=== PATIENT | male | born 1960 | race Caucasian/White ===

== ENCOUNTER 2023-01-10 17:54 | Inpatient (IN) | payer OTHER ==
[2023-01-10] MEDS ORDERED: Ondansetron PF 4 MG/2 ML Vial IVP PRN (18:25)
[2023-01-10] MEDS ORDERED: Acetaminophen 325 MG TAB PO PRN (18:25)
[2023-01-10] MEDS ORDERED: HYDROcodone/Acetaminophen 5/325 mg Tablet PO PRN (18:25)
[2023-01-10] MEDS ORDERED: Guaifenesin DM 100-10/5 ML UDCUP PO PRN (18:28)
[2023-01-10 18:40] VITALS: BMI 39.2
[2023-01-10] MEDS ORDERED: Piperacillin/Tazobactam 4.5 GM in Sodium Chloride 0.9% 100 ML IVPB SCH (19:30)
[2023-01-10] MEDS ORDERED: Non-Formulary Item 1 EACH (Baclofen [Baclofen] 20 MG Tablet) PO SCH (21:00)
[2023-01-10] MEDS: Gabapentin 300 MG CAP PO SCH (21:39)
[2023-01-10] MEDS: Transdermal Patch Removal TOP SCH (21:41)
[2023-01-10] MEDS: Metoprolol Tartrate 25 MG TAB PO SCH (21:41)
[2023-01-10 23:35] LABS: Legionella Urinary Ag Negative (Negative); Strep pneumo Urine Ag NEGATIVE (NEGATIVE)
[2023-01-11] MEDS: Piperacillin/Tazobactam 4.5 GM in Sodium Chloride 0.9% 100 ML IVPB SCH ×3 (03:35→17:31)
[2023-01-11 04:58] LABS: #Eosinphils 0.3 thou/uL (0.0-0.7); #Monocytes 0.3 thou/uL (0.11-0.59); #Neutrophils 2.2 thou/uL (1.40-6.50); %Basophils 0.6 % (0.0-1.0); %Eosinophils 9.1 % (0.0-10.0); %Lymphocytes 10.7 % (21.0-51.0); %Monocytes 9.1 % (0.0-10.0); %Neutrophils 69.9 % (42.0-75.0); Hematocrit 29.1 % (42.0-52.0); Hemoglobin 8.6 g/dL (14.0-18.0); Mean Corpuscular HGB CONC 29.6 g/dL (32.0-36.0); Mean Corpuscular Hemoglobin 28.9 pg (27.0-31.0); Mean Corpuscular Volume 97.7 fl (78.0-98.0); Mean Platelet Volume 13.3 fL (7.4-10.4); RBC Distribution Width 18.3 % (11.5-14.5); Red Blood Cell (RBC) Count 2.98 mill/uL (4.70-6.10); White Blood Cell (WBC) Count 3.2 10x3/uL (4.8-10.8)
[2023-01-11 05:18] LABS: Platelet Count 85 10x3/uL (130-400)
[2023-01-11 05:24] LABS: Anion Gap 10 mmol/L (10-20); BUN (Urea Nitrogen) 18 mg/dL (8.4-25.7); Calc. Creatinine Clearance 208 mL/min (70-130); Calcium 8.9 mg/dL (7.8-10.44); Carbon Dioxide 28 mmol/L (23-31); Chloride 108 mmol/L (98-107); Estimated GFR 102; Glucose 115 mg/dL (80-115); Potassium 4.6 mmol/L (3.5-5.1); Sodium 141 mmol/L (136-145)
[2023-01-11] MEDS: Levothyroxine Sodium 50 MCG TAB PO SCH (05:34)
[2023-01-11] MEDS: Gabapentin 300 MG CAP PO SCH ×2 (09:51→20:54)
[2023-01-11] MEDS: Metoprolol Tartrate 25 MG TAB PO SCH ×2 (09:51→20:54)
[2023-01-11] MEDS: Lidocaine 4% Patch TD SCH (09:51)
[2023-01-11] MEDS: Pantoprazole 40 MG VIAL IVP SCH (09:52)
[2023-01-11] MEDS: Mirabegron ER 25 MG ER.TAB PO SCH (09:52)
[2023-01-11] MEDS ORDERED: Baclofen 10 MG TAB PO SCH (10:00)
[2023-01-11] MEDS: Baclofen 10 MG TAB PO SCH ×2 (15:07→20:58)
[2023-01-11] MEDS: Polyethylene Glycol 3350 17 GM Packet PO SCH (20:54)
[2023-01-11] MEDS: Transdermal Patch Removal TOP SCH (21:01)
[2023-01-12] MEDS: Piperacillin/Tazobactam 4.5 GM in Sodium Chloride 0.9% 100 ML IVPB SCH ×3 (02:50→17:43)
[2023-01-12] MEDS: Levothyroxine Sodium 50 MCG TAB PO SCH (05:30)
[2023-01-12] MEDS: Mirabegron ER 25 MG ER.TAB PO SCH (08:57)
[2023-01-12] MEDS: Gabapentin 300 MG CAP PO SCH ×2 (08:57→20:48)
[2023-01-12] MEDS: Metoprolol Tartrate 25 MG TAB PO SCH ×2 (08:58→20:49)
[2023-01-12] MEDS: Lidocaine 4% Patch TD SCH (08:58)
[2023-01-12] MEDS: Pantoprazole 40 MG VIAL IVP SCH (08:58)
[2023-01-12] MEDS: Baclofen 10 MG TAB PO SCH ×3 (09:01→20:54)
[2023-01-12] MEDS ORDERED: Furosemide 20 MG/2 ML VIAL SLOW IVP SCH (11:00)
[2023-01-12] MEDS ORDERED: Nystatin Powder 15 GM BOT TOP PRN (11:40)
[2023-01-12] MEDS ORDERED: Midodrine HCl 5 MG TAB PO SCH (14:00)
[2023-01-12] MEDS: Polyethylene Glycol 3350 17 GM Packet PO SCH (20:48)
[2023-01-12] MEDS: Apixaban 5 MG TAB PO SCH (20:48)
[2023-01-12] MEDS: Transdermal Patch Removal TOP SCH (21:00)
[2023-01-13] MEDS: Piperacillin/Tazobactam 4.5 GM in Sodium Chloride 0.9% 100 ML IVPB SCH ×3 (02:55→17:45)
[2023-01-13 04:40] LABS: Hemoglobin 9.4 g/dL (14.0-18.0); Mean Corpuscular HGB CONC 29.4 g/dL (32.0-36.0); Mean Corpuscular Hemoglobin 28.7 pg (27.0-31.0); Mean Corpuscular Volume 97.9 fl (78.0-98.0); Mean Platelet Volume 11.9 fL (7.4-10.4); RBC Distribution Width 18.2 % (11.5-14.5); Red Blood Cell (RBC) Count 3.27 mill/uL (4.70-6.10); White Blood Cell (WBC) Count 3.5 10x3/uL (4.8-10.8)
[2023-01-13 04:50] LABS: Platelet Count 89 10x3/uL (130-400)
[2023-01-13 05:03] LABS: Anion Gap 12 mmol/L (10-20); BUN (Urea Nitrogen) 23 mg/dL (8.4-25.7); Calc. Creatinine Clearance 184 mL/min (70-130); Calcium 9.3 mg/dL (7.8-10.44); Carbon Dioxide 27 mmol/L (23-31); Chloride 108 mmol/L (98-107); Estimated GFR 98; Glucose 63 mg/dL (80-115); Magnesium 2.1 mg/dL (1.6-2.6); Potassium 5.1 mmol/L (3.5-5.1); Sodium 142 mmol/L (136-145)
[2023-01-13] MEDS: Levothyroxine Sodium 50 MCG TAB PO SCH (06:39)
[2023-01-13] MEDS ORDERED: Furosemide 20 MG/2 ML VIAL SLOW IVP SCH (09:00)
[2023-01-13] MEDS ORDERED: Dextrose 25% Abboject 10 ML SYRINGE SLOW IVP SCH (09:15)
[2023-01-13] MEDS: Mirabegron ER 25 MG ER.TAB PO SCH (09:58)
[2023-01-13] MEDS: Metoprolol Tartrate 25 MG TAB PO SCH ×2 (09:58→20:39)
[2023-01-13] MEDS: Gabapentin 300 MG CAP PO SCH ×2 (09:58→20:37)
[2023-01-13] MEDS: Pantoprazole 40 MG VIAL IVP SCH (09:59)
[2023-01-13] MEDS: Lidocaine 4% Patch TD SCH (09:59)
[2023-01-13] MEDS: Nystatin Powder 15 GM BOT TOP SCH (09:59)
[2023-01-13] MEDS: Furosemide 20 MG/2 ML VIAL SLOW IVP SCH (10:00)
[2023-01-13] MEDS: Apixaban 5 MG TAB PO SCH ×2 (10:00→20:36)
[2023-01-13] MEDS: Baclofen 10 MG TAB PO SCH ×3 (10:06→20:36)
[2023-01-13] MEDS ORDERED: Dextrose 50% Abboject 50 ML SYRINGE SLOW IVP SCH (10:15)
[2023-01-13] MEDS: Ipratropium/Albuterol 3 ML NEB NEB PRN (14:07)
[2023-01-13] MEDS ORDERED: Midodrine HCl 5 MG TAB PO SCH (20:15)
[2023-01-13] MEDS: Polyethylene Glycol 3350 17 GM Packet PO SCH (20:37)
[2023-01-13] MEDS: Transdermal Patch Removal TOP SCH (20:39)
[2023-01-14] MEDS: Piperacillin/Tazobactam 4.5 GM in Sodium Chloride 0.9% 100 ML IVPB SCH ×3 (02:15→18:42)
[2023-01-14 05:06] LABS: #Eosinphils 0.3 thou/uL (0.0-0.7); #Monocytes 0.3 thou/uL (0.11-0.59); %Basophils 0.3 % (0.0-1.0); %Eosinophils 8.9 % (0.0-10.0); %Lymphocytes 16.2 % (21.0-51.0); %Monocytes 9.6 % (0.0-10.0); Hematocrit 32.7 % (42.0-52.0); Hemoglobin 9.6 g/dL (14.0-18.0); Mean Corpuscular HGB CONC 29.4 g/dL (32.0-36.0); Mean Corpuscular Hemoglobin 28.8 pg (27.0-31.0); Mean Corpuscular Volume 98.2 fl (78.0-98.0); Platelet Count 91 10x3/uL (130-400); RBC Distribution Width 18.2 % (11.5-14.5); Red Blood Cell (RBC) Count 3.33 mill/uL (4.70-6.10); White Blood Cell (WBC) Count 3.1 10x3/uL (4.8-10.8)
[2023-01-14 06:01] LABS: Anion Gap 15 mmol/L (10-20); BUN (Urea Nitrogen) 23 mg/dL (8.4-25.7); Calc. Creatinine Clearance 173 mL/min (70-130); Calcium 9.7 mg/dL (7.8-10.44); Carbon Dioxide 24 mmol/L (23-31); Chloride 108 mmol/L (98-107); Estimated GFR 93; Glucose 58 mg/dL (80-115); Potassium 5.2 mmol/L (3.5-5.1); Sodium 142 mmol/L (136-145)
[2023-01-14] MEDS: Levothyroxine Sodium 50 MCG TAB PO SCH (06:18)
[2023-01-14] MEDS: Lidocaine 4% Patch TD SCH (08:44)
[2023-01-14] MEDS: Furosemide 20 MG/2 ML VIAL SLOW IVP SCH (08:45)
[2023-01-14] MEDS: Pantoprazole 40 MG VIAL IVP SCH (08:45)
[2023-01-14] MEDS: Apixaban 5 MG TAB PO SCH ×2 (08:45→21:18)
[2023-01-14] MEDS: Mirabegron ER 25 MG ER.TAB PO SCH (08:45)
[2023-01-14] MEDS: Gabapentin 300 MG CAP PO SCH ×2 (08:45→21:18)
[2023-01-14] MEDS: Nystatin Powder 15 GM BOT TOP SCH (08:46)
[2023-01-14] MEDS: Metoprolol Tartrate 25 MG TAB PO SCH (08:46)
[2023-01-14] MEDS: Baclofen 10 MG TAB PO SCH ×3 (08:48→21:16)
[2023-01-14] MEDS: Ipratropium/Albuterol 3 ML NEB NEB PRN ×2 (14:57→21:17)
[2023-01-14] MEDS ORDERED: hydrOXYzine 25 MG TAB PO SCH (17:45)
[2023-01-14] MEDS ORDERED: Midodrine HCl 5 MG TAB PO SCH (21:00)
[2023-01-14] MEDS ORDERED: QUEtiapine 25 MG TAB PO SCH (21:00)
[2023-01-14] MEDS: Polyethylene Glycol 3350 17 GM Packet PO SCH (21:16)
[2023-01-14] MEDS: Midodrine HCl 5 MG TAB PO SCH (21:17)
[2023-01-14] MEDS: Senokot S 8.6-50 MG TAB PO SCH (21:18)
[2023-01-14] MEDS: Transdermal Patch Removal TOP SCH (21:19)
[2023-01-15] MEDS ORDERED: Sodium Chloride 0.9% 500 ML IV SCH ×2 (00:15→22:00)
[2023-01-15 04:57] LABS: #Eosinphils 0.2 thou/uL (0.0-0.7); #Monocytes 0.3 thou/uL (0.11-0.59); #Neutrophils 2.2 thou/uL (1.40-6.50); %Basophils 0.3 % (0.0-1.0); %Eosinophils 5.9 % (0.0-10.0); %Lymphocytes 12.8 % (21.0-51.0); %Monocytes 9.2 % (0.0-10.0); %Neutrophils 70.8 % (42.0-75.0); Hematocrit 31.4 % (42.0-52.0); Hemoglobin 9.3 g/dL (14.0-18.0); Mean Corpuscular HGB CONC 29.6 g/dL (32.0-36.0); Mean Corpuscular Hemoglobin 28.9 pg (27.0-31.0); Mean Corpuscular Volume 97.5 fl (78.0-98.0); Mean Platelet Volume 12.5 fL (7.4-10.4); Platelet Count 90 10x3/uL (130-400); RBC Distribution Width 18.1 % (11.5-14.5); Red Blood Cell (RBC) Count 3.22 mill/uL (4.70-6.10)
[2023-01-15 05:17] LABS: Anion Gap 13 mmol/L (10-20); BUN (Urea Nitrogen) 23 mg/dL (8.4-25.7); Calc. Creatinine Clearance 142 mL/min (70-130); Calcium 9.2 mg/dL (7.8-10.44); Carbon Dioxide 29 mmol/L (23-31); Chloride 107 mmol/L (98-107); Estimated GFR 74; Glucose 97 mg/dL (80-115); Potassium 4.9 mmol/L (3.5-5.1); Sodium 144 mmol/L (136-145)
[2023-01-15] MEDS: Levothyroxine Sodium 50 MCG TAB PO SCH (06:53)
[2023-01-15] MEDS ORDERED: Furosemide 20 MG TAB PO SCH (09:00)
[2023-01-15] MEDS: Senokot S 8.6-50 MG TAB PO SCH ×2 (09:30→20:36)
[2023-01-15] MEDS ORDERED: Lactated Ringer's 500 ML IV SCH (12:15)
[2023-01-15] MEDS: Pantoprazole 40 MG VIAL IVP SCH (14:07)
[2023-01-15] MEDS: Baclofen 10 MG TAB PO SCH ×3 (14:33→17:58)
[2023-01-15] MEDS: Gabapentin 300 MG CAP PO SCH ×2 (14:41→20:34)
[2023-01-15] MEDS: Midodrine HCl 5 MG TAB PO SCH ×2 (14:43→17:48)
[2023-01-15] MEDS: Mirabegron ER 25 MG ER.TAB PO SCH (14:47)
[2023-01-15] MEDS: Apixaban 5 MG TAB PO SCH ×2 (14:48→20:34)
[2023-01-15] MEDS: Lidocaine 4% Patch TD SCH (16:11)
[2023-01-15] MEDS: Nystatin Powder 15 GM BOT TOP SCH (16:11)
[2023-01-15] MEDS: Polyethylene Glycol 3350 17 GM Packet PO SCH (20:34)
[2023-01-15] MEDS: Transdermal Patch Removal TOP SCH (20:36)
[2023-01-15] MEDS ORDERED: QUEtiapine 25 MG TAB PO SCH (21:00)
[2023-01-16 05:00] LABS: #Eosinphils 0.2 thou/uL (0.0-0.7); #Monocytes 0.3 thou/uL (0.11-0.59); #Neutrophils 2.4 thou/uL (1.40-6.50); %Basophils 0.3 % (0.0-1.0); %Eosinophils 6.1 % (0.0-10.0); %Lymphocytes 11.9 % (21.0-51.0); %Monocytes 8.3 % (0.0-10.0); %Neutrophils 72.8 % (42.0-75.0); Hematocrit 31.2 % (42.0-52.0); Hemoglobin 9.2 g/dL (14.0-18.0); Mean Corpuscular HGB CONC 29.5 g/dL (32.0-36.0); Mean Corpuscular Hemoglobin 28.6 pg (27.0-31.0); Mean Corpuscular Volume 96.9 fl (78.0-98.0); Mean Platelet Volume 12.9 fL (7.4-10.4); Platelet Count 98 10x3/uL (130-400); RBC Distribution Width 18.3 % (11.5-14.5); Red Blood Cell (RBC) Count 3.22 mill/uL (4.70-6.10); White Blood Cell (WBC) Count 3.3 10x3/uL (4.8-10.8)
[2023-01-16 05:29] LABS: Anion Gap 12 mmol/L (10-20); BUN (Urea Nitrogen) 21 mg/dL (8.4-25.7); Calc. Creatinine Clearance 176 mL/min (70-130); Calcium 9.2 mg/dL (7.8-10.44); Carbon Dioxide 27 mmol/L (23-31); Chloride 108 mmol/L (98-107); Estimated GFR 96; Glucose 62 mg/dL (80-115); Potassium 5.4 mmol/L (3.5-5.1); Sodium 142 mmol/L (136-145)
[2023-01-16] MEDS: Levothyroxine Sodium 50 MCG TAB PO SCH (06:35)
[2023-01-16] MEDS ORDERED: Dextrose 50% Abboject 50 ML SYRINGE SLOW IVP SCH (08:14)
[2023-01-16] MEDS: Pantoprazole 40 MG VIAL IVP SCH (09:22)
[2023-01-16] MEDS: Lidocaine 4% Patch TD SCH (09:23)
[2023-01-16] MEDS: Nystatin Powder 15 GM BOT TOP SCH ×2 (09:23→09:32)
[2023-01-16] MEDS: Mirabegron ER 25 MG ER.TAB PO SCH (09:32)
[2023-01-16] MEDS: Baclofen 10 MG TAB PO SCH ×3 (09:33→21:06)
[2023-01-16] MEDS: Apixaban 5 MG TAB PO SCH ×2 (09:33→20:54)
[2023-01-16] MEDS: Senokot S 8.6-50 MG TAB PO SCH ×2 (09:33→20:55)
[2023-01-16] MEDS: Midodrine HCl 5 MG TAB PO SCH ×2 (09:33→20:55)
[2023-01-16] MEDS: Gabapentin 300 MG CAP PO SCH ×2 (09:33→21:08)
[2023-01-16] MEDS: Ipratropium/Albuterol 3 ML NEB NEB PRN (12:08)
[2023-01-16] MEDS ORDERED: hydrOXYzine 25 MG TAB PO SCH (12:45)
[2023-01-16] MEDS ORDERED: hydrOXYzine 10 MG TAB PO SCH (12:45)
[2023-01-16 12:51] LABS: Actual Bicarbonate (HCO3a) 27.5 mEq/L (22-28); Base Excess (BEa) 3.1 mEq/L (-2.0 to +3.0); CO2 Tension 41.3 mmHg (35.0-45.0); Calcium, Ionized (arterial) 1.16 mmol/L (1.12-1.30); Carboxyhemoglobin (COHb) 1.4 gm% (0.0-3.0); Hematocrit-ABG 36 % (42.0-52.0); Hemoglobin (Hb) 12.2 g/dL (14.0-18.0); O2 Tension (PaO2), arterial 77.8 mmHg (> 80.0); Potassium - ABG Lab 4.79 mmol/L (3.70-5.30); pH, Arterial 7.441 (7.35-7.45)
[2023-01-16 12:53] LABS: ALV-art Gradient 20.305 mmHg (0-20); Puncture Site RRA
[2023-01-16] MEDS: hydrOXYzine 25 MG TAB PO SCH ×2 (13:01→20:55)
[2023-01-16] MEDS: Polyethylene Glycol 3350 17 GM Packet PO SCH (20:55)
[2023-01-16] MEDS: Transdermal Patch Removal TOP SCH (21:07)
[2023-01-17] MEDS: Levothyroxine Sodium 50 MCG TAB PO SCH (06:13)
[2023-01-17] MEDS: hydrOXYzine 25 MG TAB PO SCH ×3 (06:13→20:32)
[2023-01-17 07:22] LABS: #Eosinphils 0.2 thou/uL (0.0-0.7); #Monocytes 0.3 thou/uL (0.11-0.59); #Neutrophils 1.9 thou/uL (1.40-6.50); %Basophils 0.3 % (0.0-1.0); %Eosinophils 7.5 % (0.0-10.0); %Lymphocytes 17.3 % (21.0-51.0); %Monocytes 10.8 % (0.0-10.0); %Neutrophils 61.8 % (42.0-75.0); Hematocrit 30.7 % (42.0-52.0); Hemoglobin 9.1 g/dL (14.0-18.0); Mean Corpuscular HGB CONC 29.6 g/dL (32.0-36.0); Mean Corpuscular Hemoglobin 28.7 pg (27.0-31.0); Mean Corpuscular Volume 96.8 fl (78.0-98.0); Mean Platelet Volume 12.2 fL (7.4-10.4); RBC Distribution Width 18.4 % (11.5-14.5); Red Blood Cell (RBC) Count 3.17 mill/uL (4.70-6.10); White Blood Cell (WBC) Count 3.1 10x3/uL (4.8-10.8)
[2023-01-17 07:42] LABS: Anion Gap 12 mmol/L (10-20); BUN (Urea Nitrogen) 24 mg/dL (8.4-25.7); Calc. Creatinine Clearance 152 mL/min (70-130); Calcium 9.3 mg/dL (7.8-10.44); Carbon Dioxide 25 mmol/L (23-31); Chloride 107 mmol/L (98-107); Estimated GFR 83; Glucose 70 mg/dL (80-115); Potassium 4.3 mmol/L (3.5-5.1); Sodium 140 mmol/L (136-145)
[2023-01-17 07:51] LABS: Platelet Count 114 10x3/uL (130-400)
[2023-01-17] MEDS: Pantoprazole 40 MG VIAL IVP SCH (09:00)
[2023-01-17] MEDS: Gabapentin 300 MG CAP PO SCH ×2 (09:00→20:32)
[2023-01-17] MEDS: Mirabegron ER 25 MG ER.TAB PO SCH (09:00)
[2023-01-17] MEDS: Lidocaine 4% Patch TD SCH ×3 (09:00→11:37)
[2023-01-17] MEDS: Midodrine HCl 5 MG TAB PO SCH ×2 (09:00→20:30)
[2023-01-17] MEDS: Senokot S 8.6-50 MG TAB PO SCH ×2 (09:01→20:31)
[2023-01-17] MEDS: Nystatin Powder 15 GM BOT TOP SCH ×2 (09:01)
[2023-01-17] MEDS: Baclofen 10 MG TAB PO SCH ×3 (09:01→20:29)
[2023-01-17] MEDS: Apixaban 5 MG TAB PO SCH ×2 (09:01→20:29)
[2023-01-17] MEDS: Polyethylene Glycol 3350 17 GM Packet PO SCH (20:29)
[2023-01-17] MEDS: Transdermal Patch Removal TOP SCH (20:33)
[2023-01-18 04:29] LABS: #Eosinphils 0.3 thou/uL (0.0-0.7); #Monocytes 0.5 thou/uL (0.11-0.59); #Neutrophils 2.9 thou/uL (1.40-6.50); %Basophils 0.7 % (0.0-1.0); %Eosinophils 6.4 % (0.0-10.0); %Lymphocytes 15.7 % (21.0-51.0); %Monocytes 11.9 % (0.0-10.0); %Neutrophils 64.4 % (42.0-75.0); Hematocrit 31.5 % (42.0-52.0); Hemoglobin 9.4 g/dL (14.0-18.0); Mean Corpuscular HGB CONC 29.8 g/dL (32.0-36.0); Mean Corpuscular Hemoglobin 28.8 pg (27.0-31.0); Mean Corpuscular Volume 96.6 fl (78.0-98.0); Mean Platelet Volume 11.8 fL (7.4-10.4); Platelet Count 130 10x3/uL (130-400); RBC Distribution Width 18.3 % (11.5-14.5); Red Blood Cell (RBC) Count 3.26 mill/uL (4.70-6.10); White Blood Cell (WBC) Count 4.5 10x3/uL (4.8-10.8)
[2023-01-18 04:57] LABS: Anion Gap 13 mmol/L (10-20); BUN (Urea Nitrogen) 28 mg/dL (8.4-25.7); Calc. Creatinine Clearance 129 mL/min (70-130); Calcium 9.2 mg/dL (7.8-10.44); Carbon Dioxide 24 mmol/L (23-31); Chloride 110 mmol/L (98-107); Estimated GFR 68; Glucose 100 mg/dL (80-115); Potassium 3.9 mmol/L (3.5-5.1); Sodium 143 mmol/L (136-145)
[2023-01-18] MEDS: Levothyroxine Sodium 50 MCG TAB PO SCH (05:41)
[2023-01-18] MEDS: hydrOXYzine 25 MG TAB PO SCH (05:52)
[2023-01-18] MEDS: Lidocaine 4% Patch TD SCH (10:10)
[2023-01-18] MEDS: Mirabegron ER 25 MG ER.TAB PO SCH (10:11)
[2023-01-18] MEDS: Gabapentin 300 MG CAP PO SCH (10:11)
[2023-01-18] MEDS: Pantoprazole 40 MG VIAL IVP SCH (10:12)
[2023-01-18] MEDS: Midodrine HCl 5 MG TAB PO SCH ×2 (10:13→12:02)
[2023-01-18] MEDS: Apixaban 5 MG TAB PO SCH (10:13)
[2023-01-18] MEDS: Senokot S 8.6-50 MG TAB PO SCH (10:20)
[2023-01-18] MEDS: Baclofen 10 MG TAB PO SCH (10:20)
[2023-01-18] MEDS: Nystatin Powder 15 GM BOT TOP SCH (12:53)
[2023-01-18 13:00] VITALS: TEMP 97.4
[2023-01-18 13:06] VITALS: BP 107/67
== END 2023-01-18 14:00 | disposition home or self-care (01) | DRG 193 ==
LOC: 2NO 17:54
PROVIDERS: ADMIT Internal Medicine; ATTEND Internal Medicine
PROC: 5A09457 Assistance with Respiratory Ventilation, 24-96 Consecutive Hours, Continuous Positive Airway Pressure (ICD-10-PCS; 2023-01-10)
PROC: 4A033R1 Measurement of Arterial Saturation, Peripheral, Percutaneous Approach (ICD-10-PCS; principal; 2023-01-16)
DX: J18.9 Pneumonia, unspecified organism (principal); J96.01 Acute respiratory failure with hypoxia; R04.2 Hemoptysis; J90 Pleural effusion, not elsewhere classified; I95.9 Hypotension, unspecified; G47.33 Obstructive sleep apnea (adult) (pediatric); Z79.899 Other long term (current) drug therapy; E66.01 Morbid (severe) obesity due to excess calories; I48.0 Paroxysmal atrial fibrillation; Z95.0 Presence of cardiac pacemaker; Z82.3 Family history of stroke; K59.00 Constipation, unspecified; E87.5 Hyperkalemia; R40.0 Somnolence; Z79.01 Long term (current) use of anticoagulants; F41.9 Anxiety disorder, unspecified; G47.00 Insomnia, unspecified; I48.91 Unspecified atrial fibrillation; I50.9 Heart failure, unspecified
CPT/HCPCS: 36415; 36416; 36600; 70450; 71045; 74018; 80048; 82805; 83735; 84145; 85025; 85027; 87081; 87449; 87899; 97139; C9113; J1940; J2543; J3490; J7030; J7120; J7620; J7999

== ENCOUNTER 2023-03-08 16:37 | Outpatient (CLI) | payer OTHER | END 2023-03-08 16:38 | disposition home or self-care (01) | LOC: RAD 16:37 | PROVIDERS: ATTEND Family Medicine | DX: K59.00 Constipation, unspecified (principal) | CPT/HCPCS: 74019 ==

== ENCOUNTER 2024-12-18 12:57 | Outpatient (CLI) | payer OTHER | END 2024-12-18 12:58 | disposition home or self-care (01) | LOC: BICRAD 12:57 → RAD 12:58 | PROVIDERS: ATTEND Internal Medicine | DX: J40 Bronchitis, not specified as acute or chronic (principal); J90 Pleural effusion, not elsewhere classified | CPT/HCPCS: 71046 ==